=== PATIENT | female | born 1995 | race Caucasian/White ===

== ENCOUNTER 2018-08-01 12:51 | Emergency (ER) | payer MEDICAID ==
[~2018-08-01] VITALS: Ht 160 cm; Wt 64.5 kg
[~2018-08-01 12:51] MED LIST: CHLO25CA10 PO; DIPH25CA83 PO; ESCI5TAB PO; MACROBID PO; NAPR-56 PO
[2018-08-01 12:57] VITALS: BP 105/76
[2018-08-01] MEDS ORDERED: PENI500T2 PO (13:55)
[2018-08-01] MEDS ORDERED: IBUP-1984 PO (13:58)
== END 2018-08-01 14:12 | disposition home or self-care (01) ==
LOC: ER 12:51
DX: K08.89 Other specified disorders of teeth and supporting structures (principal); K06.8 Other specified disorders of gingiva and edentulous alveolar ridge; F15.90 Other stimulant use, unspecified, uncomplicated; F11.90 Opioid use, unspecified, uncomplicated; Z79.899 Other long term (current) drug therapy; Z59.0 Homelessness
CPT/HCPCS: 99283

== ENCOUNTER 2018-11-19 18:04 | Emergency (ER) | payer MEDICAID ==
[~2018-11-19] VITALS: Ht 160 cm; Wt 65.0 kg
[2018-11-19 18:10] VITALS: BP 112/63
[2018-11-19] MEDS ORDERED: CIPR10DR RIGHT EAR (18:41)
== END 2018-11-19 18:51 | disposition home or self-care (01) ==
LOC: ER 18:05
DX: H60.91 Unspecified otitis externa, right ear (principal); F15.90 Other stimulant use, unspecified, uncomplicated; F11.90 Opioid use, unspecified, uncomplicated; Z60.2 Problems related to living alone; Z59.0 Homelessness; Z79.2 Long term (current) use of antibiotics; Z79.899 Other long term (current) drug therapy
CPT/HCPCS: 99283

== ENCOUNTER 2019-10-13 13:21 | Emergency (ER) | payer MEDICAID, OTHER ==
[~2019-10-13] VITALS: Ht 160 cm; Wt 71.0 kg
[2019-10-13 13:40] VITALS: BP 122/81
[2019-10-13] MEDS ORDERED: LIDOcaine 5% patch TP ONE (14:35)
== END 2019-10-13 15:51 | disposition home or self-care (01) ==
LOC: ER 13:21
DX: M54.6 Pain in thoracic spine (principal); F15.90 Other stimulant use, unspecified, uncomplicated; F11.90 Opioid use, unspecified, uncomplicated; Z60.2 Problems related to living alone; Z59.0 Homelessness; Z79.899 Other long term (current) drug therapy; V49.9XXA Car occupant (driver) (passenger) injured in unspecified traffic accident, initial encounter; Y93.89 Activity, other specified; Y92.488 Other paved roadways as the place of occurrence of the external cause; Y99.8 Other external cause status
CPT/HCPCS: 72074; 99283

== ENCOUNTER 2019-12-02 22:15 | Emergency (ER) | payer MEDICAID ==
[~2019-12-02] VITALS: Ht 160 cm; Wt 76.4 kg
[2019-12-02 22:18] VITALS: BP 138/82
[2019-12-03] MEDS ORDERED: ketorolac tromethamine 15mg/ml inj. IM ONE (00:25)
[2019-12-03] MEDS ORDERED: IBUP-1984 PO (00:37)
== END 2019-12-03 00:59 | disposition home or self-care (01) ==
LOC: ER 22:16
DX: M94.0 Chondrocostal junction syndrome [Tietze] (principal); F15.90 Other stimulant use, unspecified, uncomplicated; F11.90 Opioid use, unspecified, uncomplicated; Z60.2 Problems related to living alone; Z59.0 Homelessness; Z79.899 Other long term (current) drug therapy
CPT/HCPCS: 96372; 99283; J1885

== ENCOUNTER 2023-12-20 18:53 | Emergency (ER) | payer MEDICAID ==
[~2023-12-20] VITALS: Ht 160 cm; Wt 61.4 kg
[2023-12-20 18:56] VITALS: TEMP 97.9
[2023-12-20 19:38] LABS: URINE HCG NEGATIVE (NEG)
[2023-12-20 19:52] LABS: URINE AMPHETAMINE SCREEN NEGATIVE (Neg); URINE BARBITUATE SCREEN NEGATIVE (Neg); URINE BENZODIAZEPINES SCREEN POSITIVE (Neg); URINE CANNABINOID SCREEN NEGATIVE (Neg); URINE COCAINE SCREEN NEGATIVE (Neg); URINE METHADONE SCREEN NEGATIVE (Neg); URINE OPIATE SCREEN NEGATIVE (Neg); URINE PHENCYCLIDINE SCREEN NEGATIVE (Neg)
[2023-12-20 20:08] VITALS: BP 133/77; PULSE 88; RESP 14; O2SAT 99
== END 2023-12-20 20:11 | disposition home or self-care (01) ==
LOC: ER 18:53
DX: Z00.00 Encounter for general adult medical examination without abnormal findings (principal); F15.90 Other stimulant use, unspecified, uncomplicated; Z79.899 Other long term (current) drug therapy
CPT/HCPCS: 36415; 80305; 80320; 81025; 99283

== ENCOUNTER 2024-04-12 13:08 | Emergency (ER) | payer MEDICAID ==
[~2024-04-12] VITALS: Ht 160 cm; Wt 59.8 kg
[2024-04-12 13:15] VITALS: BP 116/70; PULSE 105; RESP 14; TEMP 98.8; O2SAT 98
[2024-04-12] MEDS ORDERED: DOXY150T3 PO (14:14)
[2024-04-12] MEDS: ketorolac tromethamine 15mg/ml inj. IM ONE (14:42)
== END 2024-04-12 15:30 | disposition home or self-care (01) ==
LOC: ER 13:08
DX: L02.413 Cutaneous abscess of right upper limb (principal); F17.210 Nicotine dependence, cigarettes, uncomplicated; F15.90 Other stimulant use, unspecified, uncomplicated; F11.90 Opioid use, unspecified, uncomplicated; L03.114 Cellulitis of left upper limb; L03.113 Cellulitis of right upper limb; Z59.00 Homelessness unspecified; Z79.899 Other long term (current) drug therapy
CPT/HCPCS: 96372; 99283; J1885

== ENCOUNTER 2024-07-02 21:12 | Emergency (ER) | payer MEDICAID ==
[~2024-07-02] VITALS: Ht 160 cm; Wt 45.5 kg
[2024-07-02 21:59] LABS: BASOPHILS % (AUTO) 0.4 % (0-1); EOSINOPHILS # (AUTO) 0.1 X10'3 (0-0.9); EOSINOPHILS % (AUTO) 0.9 % (0-6); HEMOGLOBIN 13.5 g/dl (12.0-16.0); LYMPHOCYTES % (AUTO) 29.2 % (21-51); MEAN CORPUSCULAR HGB CONC 32.8 g/dL (33.0-36.5); MEAN CORPUSCULAR VOLUME 85.3 FL (78-98); MEAN PLATELET VOLUME 8.4 FL (7.4-10.4); MONOCYTES # (AUTO) 0.7 X10'3 (0-0.9); MONOCYTES % (AUTO) 7.4 % (2-12); NEUTROPHILS # (AUTO) 6.3 X10'3 (1.8-7.7); NEUTROPHILS % (AUTO) 62.1 % (42-75); PLATELET COUNT 320 X10'3 (140-440); RED CELL DISTRIBUTION WIDTH 14.6 % (11.5-14.5); WHITE BLOOD COUNT 10.1 X10'3 (4.5-11.0)
[2024-07-02 22:04] LABS: ALANINE AMINOTRANSFERASE 20 U/L (12-78); ALBUMIN 3.8 G/DL (3.4-5.0); ALKALINE PHOSPHATASE 66 IU/L (46-116); ANION GAP 6 (8-16); ASPARTATE AMINO TRANSFERASE 23 U/L (10-37); BILIRUBIN,TOTAL 0.4 MG/DL (0.1-1.0); BLOOD UREA NITROGEN 12 MG/DL (7-18); BUN/CREATININE RATIO 14.8 (10.0-20.0); CALCIUM 9.8 MG/DL (8.5-10.1); CHLORIDE 104 MMOL/L (99-107); CREATININE 0.81 MG/DL (0.40-0.90); GLUCOSE 135 MG/DL (70-104); LIPASE 17 U/L (16-77); POTASSIUM 3.4 MMOL/L (3.5-5.1); SODIUM 141 MMOL/L (135-145); TOTAL CARBON DIOXIDE 31.2 MMOL/L (24-32); TOTAL PROTEIN 7.8 G/DL (6.4-8.2); eCRCL 74 ML/MIN; eGFR 84 ML/MIN
[2024-07-03] MEDS ORDERED: BISA-78 PO (01:03)
[2024-07-03] MEDS ORDERED: POLY119P2 PO (01:03)
[2024-07-03] MEDS ORDERED: methylnaltrexone br 12mg/0.6ml inj***SubQ only SQ ONE (01:05)
[2024-07-03] MEDS: bisacodyl 5mg tablet.DR PO ONE (01:28)
[2024-07-03 01:41] VITALS: BP 126/74; PULSE 80; RESP 12; TEMP 98.8; O2SAT 100
== END 2024-07-03 01:44 | disposition home or self-care (01) ==
LOC: ER 21:13
DX: K59.00 Constipation, unspecified (principal); F15.90 Other stimulant use, unspecified, uncomplicated; Z79.899 Other long term (current) drug therapy
CPT/HCPCS: 36415; 80053; 83690; 85025; 99285